=== PATIENT | female | born 1955 | race Hispanic/Latino ===

== ENCOUNTER 2019-07-19 08:37 | Day surgery (SDC) | payer MEDICARE ==
[2019-07-19] MEDS ORDERED: ASPIRIN EC 325 MG TAB PO ONE (09:03)
[2019-07-19 09:18] LABS: Basophils % (Auto) 0.7 % (0.0-1.8); Eosinophils % (Auto) 0.5 % (0.0-4.3); Hematocrit 40.5 % (30.3-42.9); Hemoglobin 13.4 gm/dl (10.1-14.3); Lymphocytes # (Auto) 3.3 K/mm3 (1.2-5.4); Lymphocytes % (Auto) 52.3 % (13.4-35.0); Mean Corpuscular HGB Conc 33 % (30-34); Mean Corpuscular Volume 93 fl (79-97); Monocytes # (Auto) 0.7 K/mm3 (0.0-0.8); Platelet Count 340 K/mm3 (140-440); Red Blood Count 4.36 M/mm3 (3.65-5.03); Red Cell Distribution Width 13.6 % (13.2-15.2)
[2019-07-19 09:30] LABS: Calcium 9.4 mg/dL (8.4-10.2)
[2019-07-19] MEDS: SODIUM CHLORIDE 0.9% 500 ML 500 ML IV SCH ×2 (09:40→11:46)
[2019-07-19 09:47] LABS: Partial Thromboplastin Time 33.7 Sec. (24.2-36.6)
[2019-07-19 09:50] LABS: INR 0.98 (0.87-1.13)
[2019-07-19] MEDS ORDERED: HEPARIN/NS 5000 UNIT/500ML 1,000 ML IR ONE (11:22)
[2019-07-19] MEDS ORDERED: VERAPAMIL 5 MG/2 ML INJ ONE (11:23)
[2019-07-19] MEDS ORDERED: HEPARIN 10,000 UNITS/10 ML VIAL ONE (11:23)
[2019-07-19] MEDS ORDERED: NITROGLYCERIN SYRINGE 3 ML ONE (11:23)
[2019-07-19] MEDS: fentaNYL 100 MCG/2 ML INJ ONE ×2 (11:47→11:48)
[2019-07-19] MEDS: MIDAZOLAM 2 MG/2 ML INJ ONE ×2 (11:47→11:48)
[2019-07-19] MEDS: LIDOCAINE (2%) 20 MG/1 ML VIAL 20 ML MDV INFILTRATI ONE ×2 (11:47→11:48)
[2019-07-19] MEDS ORDERED: LIDOCAINE (2%) 20 MG/1 ML VIAL 20 ML MDV INFILTRATI ONE (11:48)
--- NOTE | 2019-07-19 12:46 | Cardiac Catherization Report ---
CARDIAC PERFUSION SCAN REFERRING PHYSICIAN: Esther Morin and Dr. Lino Hahn. INDICATION FOR PROCEDURE: The patient is a very pleasant 64-year-old female with recurrent chest pain despite negative stress test with typical features. The patient and family are very concerned. Left heart catheterization recommended. Risks, benefits, alternatives discussed prior to obtaining informed consent. PROCEDURE IN DETAIL: The patient was brought to catheterization lab in a postabsorptive state, prepped and draped in sterile fashion. Clif's test in right hand was normal. A 2 mL of 2% lidocaine used to anesthetize the right wrist. A standard 6-Nepali hydrophilic sheath used to cannulate the right radial artery via modified Seldinger technique. All exchanges performed to exchange a J-tip guidewire. JL3.5 catheter was used to engage the left main. No dampening or ventricularization. Cineangiography performed in multiple projections. JR4 catheter cross the aortic valve under fluoroscopic guidance. Left ventriculography performed in 30 [place] and 30 [place] projections via hand injections, catheter flushed. Manual pullback performed with continuous pressure monitoring. Catheter used to engage the right coronary. No dampening or ventricularization. Cineangiography performed in all projections. Next due to recurrent chest pain, hypertension, unremarkable coronaries, a root aortogram was performed in the [place] projection with power injector with a pigtail catheter. Next, catheter removed from the body over wire, sheath removed. Manual pressure used to achieve hemostasis. I directly supervised the administration of moderate sedation from 11:30 a.m. to noon with fentanyl and Versed. DATA: Aortic pressure is 150/80, LV pressure is 150, LVP of 18 mmHg. Left ventricle reveals normal systolic performance with estimated ejection fraction of 55-60%. No evidence of aortic stenosis. CORONARY ANATOMY: This is a codominant system. Left main without significant disease, bifurcates left anterior descending and left circumflex. No significant disease in the LAD or circumflex system, tortuous coronary tree altogether left PDA is noted. Right coronary is a moderate sized vessel, courses AV groove. No significant disease. Root aortogram reveals no evidence of dissection, penetrating aortic ulcer, or aortic insufficiency, normal contour and great vessel anatomy. CONCLUSIONS: 1. No angiographic evidence of significant epicardial coronary disease in this codominant system. 2. Normal left ventricular systolic performance, estimated ejection fraction of 55-60%. 3. No evidence of aortic stenosis. 4. Normal LVEDP. 5. Normal root aortography without evidence of dissection, penetrating aortic ulcer, or aortic insufficiency. The patient is clinically stable, chest pain free. We will check a V/Q scan. Discussed with her daughter, Esther at length. Follow up with me in the office to complete workup, standard radial care. JOB# [id number] SBM/NTS
--- NOTE | 2019-07-19 13:35 | Short Stay Summary ---
Short Stay Documentation Date of service: 07/19/19 - History H&P: obtained from office - Allergies and Medications Current Medications: Allergies No Known Allergies Allergy (Unverified 07/19/19 08:38) Home Medications Medication Instructions Recorded Confirmed Last Taken Type Cyclobenzaprine [Flexeril 10 MG 10 mg PO BID PRN 07/19/19 07/19/19 07/18/19 History TAB] 10 mg Dexchlorpheniram/Phenylephrine 2 tab PO BID PRN 07/19/19 07/19/19 07/17/19 History [Rymed Tablet] 2 Diclofenac Sodium 75 mg PO DAILY 07/19/19 07/19/19 07/17/19 History 75 mg Gabapentin 300 mg PO TID 07/19/19 07/19/19 07/18/19 History 300 mg Ondansetron HCl [Zofran] 4 mg PO Q8HR PRN 07/19/19 07/19/19 07/17/19 History 4 mg PARoxetine [Paxil] 20 mg PO DAILY 07/19/19 07/19/19 07/18/19 History 20 mg PriLOSEC Otc 20 mg PO DAILY 07/19/19 07/19/19 07/17/19 History 20 mg traMADoL [Ultram 50 MG tab] 50 mg PO Q4HR PRN 07/19/19 07/19/19 07/12/19 History 20 mg Active Medications Sodium Chloride (Nacl 0.9% 500 Ml) 500 mls @ 50 mls/hr IV DIRECT MERI Stop: 07/19/19 19:59 Last Admin: 07/19/19 11:46 Dose: 50 mls/hr Documented by: - Brief post op/procedure progress note Date of procedure: 07/19/19 Pre-op diagnosis: cp Post-op diagnosis: same Procedure: [facility] - see dictated cath report Anesthesia: local Estimated blood loss: none Condition: stable - Disposition Condition at discharge: Good Disposition: DC-01 TO HOME OR SELFCARE - Discharge Diagnoses (1) Chest pain Status: Chronic (2) Normal coronary angiogram Status: Chronic Short Stay Discharge Plan Wound: open to air, keep clean and dry, per your surgeon's advice Follow up with: AUNG MEADOWS MD [Primary Care Provider] - 7 Days
--- NOTE | 2019-07-19 14:21 | Nuclear Medicine Report ---
Nuclear medicine ventilation/perfusion lung scan Indication: Shortness of breath Technique: 15.3 mCi of Xenon-133 were given by inhalation. 5.4 mCi of Tc 99m MAA were given by IV. Findings: No chest x-rays available for comparison. Wash-in, equilibrium, and wash-out phases of ventilation are normal. No air-trapping is seen. No perfusion defects are noted. Impression: Low probability for pulmonary embolism. Signer Name: Karlos Torres MD Signed: 07/19/2019 2:16 PM Workstation Name: [id number]
[2019-07-19 15:11] VITALS: BP 152/69
== END 2019-07-19 08:38 | disposition home or self-care (01) ==
LOC: CATHLABREC 08:37
PROVIDERS: ATTEND Internal Medicine
DX: R07.9 Chest pain, unspecified (principal); G62.9 Polyneuropathy, unspecified; M19.90 Unspecified osteoarthritis, unspecified site; Z90.49 Acquired absence of other specified parts of digestive tract; Z87.440 Personal history of urinary (tract) infections; Z98.890 Other specified postprocedural states; Z79.899 Other long term (current) drug therapy; Z90.710 Acquired absence of both cervix and uterus
CPT/HCPCS: 36415; 78582; 80048; 85025; 85610; 85730; 93005; 93010; 93458; 93567; 99156; 99157; A9540; A9558; C1894; J1644; J2250; J3010; J7040; Q9967